=== PATIENT | male | born 1975 | race Caucasian/White ===

== ENCOUNTER 2024-09-24 23:34 | Emergency (ER) | payer SELFPAY ==
[~2024-09-24] VITALS: Ht 160 cm; Wt 72.6 kg
[2024-09-24 23:53] VITALS: BP 150/107; PULSE 75; RESP 18; TEMP 98; O2SAT 98
[2024-09-25] MEDS ORDERED: OFLO5DRO2 OP (00:09)
== END 2024-09-25 00:15 | disposition home or self-care (01) ==
LOC: MED 23:34
DX: H10.211 Acute toxic conjunctivitis, right eye (principal); R03.0 Elevated blood-pressure reading, without diagnosis of hypertension; Z79.899 Other long term (current) drug therapy
CPT/HCPCS: 99283